=== PATIENT | female | born 1990 | race Caucasian/White ===

== ENCOUNTER → 2017-08-27 | Outpatient (CLI) | payer OTHER | END | disposition home or self-care (01) | LOC: C.LABSPEC 15:59 | PROVIDERS: ATTEND Obstetrics & Gynecology | DX: O09.211 Supervision of pregnancy with history of pre-term labor, first trimester (principal); Z3A.00 Weeks of gestation of pregnancy not specified ==

== ENCOUNTER → 2017-08-27 | Outpatient (CLI) | payer OTHER | END | disposition home or self-care (01) | LOC: C.PAPS 09:41 | PROVIDERS: ATTEND Obstetrics & Gynecology | DX: O09.211 Supervision of pregnancy with history of pre-term labor, first trimester (principal); Z3A.00 Weeks of gestation of pregnancy not specified ==

== ENCOUNTER → 2017-08-27 | Outpatient (CLI) | payer OTHER | END | disposition home or self-care (01) | LOC: C.LABSPEC 15:49 | PROVIDERS: ATTEND Obstetrics & Gynecology | DX: O09.211 Supervision of pregnancy with history of pre-term labor, first trimester (principal); Z3A.00 Weeks of gestation of pregnancy not specified ==

== ENCOUNTER → 2017-08-27 | Outpatient (CLI) | payer OTHER ==
[2017-08-27 14:39] LABS: BASO % 0.4 %; BASO ABS # 0.05 K/uL (0-0.2); EOS % 0.8 %; HEMATOCRIT 37.3 % (37-47); HEMOGLOBIN 12.7 g/dL (12.0-16.0); IG# 0.06 K/uL (0.00-0.02); LYMPH % 17.5 %; LYMPH ABS # 2.07 K/uL (1.2-3.4); MEAN CELL VOLUME 88.4 fL (80-100); MEAN CORPUSCULAR HEMOGLOBIN 30.1 pg (25-34); MEAN PLATELET VOLUME 9.5 fL (7.4-10.4); MONO % 9.1 %; MONO ABS # 1.08 K/uL (0.11-0.59); NEUT % 71.7 %; NEUT ABS # 8.47 K/uL (1.4-6.5); PLATELET COUNT 371 K/uL (130-400); RED CELL DISTRIBUTION WIDTH CV 12.9 % (11.5-14.5); RED CELL DISTRIBUTION WIDTH SD 41.7 fL (36.4-46.3); WHITE BLOOD COUNT 11.83 K/uL (4.8-10.8)
== END | disposition home or self-care (01) ==
LOC: C.LAB1850 13:15
PROVIDERS: ATTEND Obstetrics & Gynecology
DX: O09.211 Supervision of pregnancy with history of pre-term labor, first trimester (principal); Z3A.00 Weeks of gestation of pregnancy not specified

== ENCOUNTER → 2017-10-15 | Outpatient (CLI) | payer OTHER | LOC: C.LAB1850 15:11 | PROVIDERS: ATTEND Obstetrics & Gynecology | DX: O09.212 Supervision of pregnancy with history of pre-term labor, second trimester (principal); Z3A.00 Weeks of gestation of pregnancy not specified ==

== ENCOUNTER → 2017-10-29 | Outpatient (CLI) | payer OTHER | END | disposition home or self-care (01) | LOC: C.LAB1850 07:48 | PROVIDERS: ATTEND Obstetrics & Gynecology | DX: O28.1 Abnormal biochemical finding on antenatal screening of mother (principal) ==

== ENCOUNTER 2025-01-30 06:11 | Observation (INO) ==
--- NOTE | 2025-01-30 06:41 | Emergency Department Note ---
Impression & Plan Acute cholecystitis, Acute upper abdominal pain ED Provider Note NAME: HUMBERTO ALONZO AGE: 34 SEX: F : 1990 ARRIVES VIA: Walk-In INFORMANT: Patient, ED PROVIDER(S): Aleksander Hartley DO CHIEF COMPLAINT: Abdominal pain HPI: The patient is a 34-year-old female who presented to the emergency department for upper abdominal pain. The patient's had symptoms over the last several months. Initially symptoms were intermittent. She did go see her family doctor for the symptoms. She has been referred for an ultrasound. The patient returns emergency department today because of worsening symptoms this morning. She denies having any vomiting. She denies having any difficulty breathing. She denies having any leg swelling or leg pain. ROS: See above HPI for pertinent positives & negatives. A total of 10 systems reviewed and were otherwise negative. PAST MEDICAL HISTORY: See Below PAST SURGICAL HISTORY: See Below FAMILY HISTORY: See Below SOCIAL HISTORY: See Below HOME MEDICATIONS: See Below ALLERGIES: See Below VITALS: See Below PHYSICAL EXAMINATION: GENERAL: Patient is awake alert in no acute distress patient is resting comfortably and showing no signs of anxiety EYES: The conjunctivae are clear. The pupils are round and reactive. EARS, NOSE, MOUTH AND THROAT: The nose is without any evidence of any deformity. Mucous membranes are moist. Tongue is midline. NECK: The neck is nontender and supple. RESPIRATORY: Normal respiratory effort is noted there is no evidence of wheezing rhonchi or rales CARDIOVASCULAR: Regular rate and rhythm noted there no murmurs rubs or gallops normal S1 normal S2. GASTROINTESTINAL: The abdomen is soft and nondistended. There is no specific guarding there was right upper quadrant tenderness to palpation. MUSCULOSKELETAL/EXTREMITIES: There is no evidence of gross deformity full range of motion is noted in the hips and shoulders. SKIN: There is no obvious evidence of any rash. There are no petechiae, pallor or cyanosis noted. NEUROLOGIC: Patient is awake alert and oriented x3 MEDICAL DECISION MAKING: The patient is a 34-year-old female who presented to the emergency department for an evaluation of upper abdominal pain. Patient's history and physical exam did appear to be more consistent with an intra-abdominal process. I discussed the patient's laboratory and radiographic studies with her. She was treated with pain medication in the emergency department. She was also started on IV of antibiotics when workup appears to be consistent with acute cholecystitis. I discussed her condition with the on-call general surgical group. They have agreed to evaluate the patient in the emergency department. They felt she was a good candidate for surgical intervention. The patient was agreeable with that plan. Triage Nursing notes reviewed. Prior medical records reviewed Vital Signs: reviewed and remarkable for bradycardia. Differential diagnosis: Etiologies such as appendicitis, diverticulitis, obstruction, inflammatory bowel disease, renal colic, PUD, biliary pathology, pancreatitis, mesenteric ischemia, aortic pathology, infections, genitourinary, UTI, perforated viscus, as well as others were entertained. ER treatment provided: See below Diagnostics interpreted by me: ECG: EKG was obtained in the emergency department. My interpretation is normal sinus rhythm at 74 bpm. There is no ectopy. There is no acute ST segment abnormalities noted. QTc was 415 ms. Cardiac Monitoring: An order was placed for continuous cardiac monitoring. The monitor shows a rate of 60 bpm with sinus bradycardia. Laboratory studies: As stated above and show below. Imaging studies: See below. Radiographic imaging was reviewed by myself Consultation(s): I discussed this case with Maggie who is on for general surgery. They will evaluate the patient in the emergency department. Past Med/Surg History Problem List (Updated 01/30/25 @ 14:58 by Aleksander Hartley DO) Acute upper abdominal pain (Acute) Acute cholecystitis (Acute) Acute cholecystitis Encounter for pre-operative examination Pelvic pain Visual disturbance Ataxia Neck pain Paresthesias Elevated blood pressure reading in office without diagnosis of hypertension Left temporal headache Numbness and tingling of upper extremity Numbness and tingling of both legs Weakness Numbness and tingling of left side of face Vision changes H/O section Encounter to establish care Obesity Depression Anxiety 22 weeks gestation of Incompetent cervix during second trimester, antepartum with 22 completed weeks gestation Vaginal bleeding during , antepartum Medical History delivery delivered Family History Father Hypertension Grandfather (Paternal) Pancreatic cancer Stroke Denies family history of Ovarian cancer Prostate cancer Diabetes Alzheimer disease Myocardial infarction Breast cancer Lung cancer COPD (chronic obstructive pulmonary disease) Colorectal cancer Social History Smoking Status: Current every day smoker Tobacco Type: Cigarettes Age Started Using Tobacco: 19; packs per day: 1; Second Hand Exposure: No; Do You Dip or Chew Tobacco: No; Hx Alcohol Use: Yes Alcohol type: hard liquor Alcohol Intake Frequency: 2-4 x/Month Hx Substance Use: No Preferred Language: Belgian Communication Ability: Effective Compliance Lead Required: No Beliefs That Will Affect Care: None marital status: / Current Living Situation: Alone current occupational status: employed How many Children do You have: 2 Other Information That Helps Us Care for You: No Feels Safe at Home: Yes Safety Concerns: Feels Safe At This Time Childhood Exposure to Second-Hand Smoke: No Diet: regular caffeine: Yes during the past year weight has: decreased > 10 lbs Dental Care, Regularly: Yes Physical Activity Frequency: 3-4 Times per Week Seatbelt Use: always Sunscreen Use: Yes Do you think of yourself as: straight/heterosexual Gender Identity: Female Assistive Devices: None Allergies Allergies Allergy/AdvReac Type Severity Reaction Status Date / Time No Known Allergies Allergy Unverified 01/17/25 14:23 Home Meds Home Medications Medication Instructions Recorded Confirmed lisinopril 10 mg tablet 0 mg PO DAILY 01/30/25 01/30/25 multivitamin 1 tab PO DAILY 01/30/25 01/30/25 Previous Rx's Medication Instructions Recorded oxycodone 5 mg tablet 5 - 10 mg (1 - 2 x 5 mg) PO 01/30/25 .[id number] PRN pain, for initial therapy, max 6 tabs per day #15 tabs Results & Data (ED) Vital Signs Vital Signs - 24 hr 01/30/25 06:15 01/30/25 06:26 01/30/25 06:29 Temperature 36.5 C Temperature Source Temporal Artery Scan Pulse Rate 84 74 74 Pulse Rate [Apical] Pulse Rhythm Regular Regular Pulse Rhythm [Apical] Pulse Strength Normal Pulse Strength [Apical] Respiratory Rate 18 16 Respiratory Effort / Characteristics Non-Labored Spontaneous Respiratory Depth Normal Respiratory Pattern Regular Blood Pressure 165/109 H Blood Pressure [Right Arm] Blood Pressure Mean 127 Blood Pressure Mean [Right Arm] Blood Pressure Position Sitting Blood Pressure Position [Right Arm] Pulse Oximetry 100 98 Oxygen Delivery Method Room Air Room Air Sepsis Recent Fever Within 48 Hours No Sepsis New/Unexplained Change in Mental Status No Sepsis Action Taken by Nursing No Action Required 01/30/25 06:33 01/30/25 08:07 01/30/25 09:00 Temperature Temperature Source Pulse Rate 77 Pulse Rate [Apical] 53 L 48 L Pulse Rhythm Pulse Rhythm [Apical] Regular Pulse Strength Pulse Strength [Apical] Respiratory Rate 22 20 24 Respiratory Effort / Characteristics Non-Labored Non-Labored Spontaneous Respiratory Depth Normal Shallow Respiratory Pattern Regular Blood Pressure 141/106 H Blood Pressure [Right Arm] 142/92 H 135/72 Blood Pressure Mean 117 Blood Pressure Mean [Right Arm] 108 93 Blood Pressure Position Blood Pressure Position [Right Arm] Pulse Oximetry 98 99 97 Oxygen Delivery Method Room Air Room Air Room Air Sepsis Recent Fever Within 48 Hours Sepsis New/Unexplained Change in Mental Status Sepsis Action Taken by Nursing 01/30/25 09:36 01/30/25 09:41 01/30/25 09:52 Temperature 36.6 C Temperature Source Oral Pulse Rate Pulse Rate [Apical] 50 L 57 L Pulse Rhythm Pulse Rhythm [Apical] Regular Pulse Strength Pulse Strength [Apical] Normal Respiratory Rate 20 18 Respiratory Effort / Characteristics Non-Labored Spontaneous Non-Labored Spontaneous Respiratory Depth Normal Normal Respiratory Pattern Regular Blood Pressure Blood Pressure [Right Arm] 145/105 H 152/104 H Blood Pressure Mean Blood Pressure Mean [Right Arm] 118 120 Blood Pressure Position Blood Pressure Position [Right Arm] Sitting Pulse Oximetry 98 98 Oxygen Delivery Method Room Air Room Air Room Air Sepsis Recent Fever Within 48 Hours Sepsis New/Unexplained Change in Mental Status Sepsis Action Taken by Care Home Medications Current Medication List: was personally reviewed by me Laboratory Data Attestation: I reviewed the patient's lab results. 01/30/25 07:02 01/30/25 06:30 Lab Results 01/30/25 01/30/25 Range/Units 06:30 07:02 WBC 10.73 (4.8-10.8) K/ul RBC 4.37 (4.20-5.40) M/uL Hgb 13.7 (12.0-16.0) g/dl Hct 39.4 (37.0-47.0) % MCV 90.2 (80.0-100.0) fL MCH 31.4 (25.0-34.0) pg MCHC 34.8 (32.0-36.0) g/dL RDW Std Deviation 41.4 (36.4-46.3) fL RDW Coeff of Petros 12.5 (11.5-14.5) % Plt Count 331 (130-400) K/uL MPV 9.5 (9.4-12.4) fL Immature Gran % (Auto) 0.6 % Neut % (Auto) 71.4 % Lymph % (Auto) 17.1 % Cross % (Auto) 8.9 % Eos % (Auto) 1.0 % Baso % (Auto) 1.0 % Neut # (Auto) 7.66 H (1.40-6.50) K/uL Lymph # (Auto) 1.84 (1.20-3.40) K/uL Cross # (Auto) 0.95 H (0.11-0.59) K/uL Eos # (Auto) 0.11 (0.00-0.50) K/uL Baso # (Auto) 0.11 (0.00-0.20) K/uL Immature Gran # (Auto) 0.06 (0.01-0.20) K/uL PT 10.6 (9.0-12.0) Seconds INR 1.0 (0.9-1.1) APTT 26 (21-31) Seconds PTT Ratio 1.0 Sodium 137 (136-145) mmol/L Potassium 3.9 (3.5-5.1) mmol/L Chloride 105 (98-107) mmol/L Carbon Dioxide 27 (21-32) mmol/L Anion Gap 5 (3-11) BUN 15 (6-23) mg/dl Creatinine 0.62 (0.6-1.2) mg/dl Est Cr Clr Drug Dosing 146.7 ml/min eGFR 121.27 BUN/Creatinine Ratio 24.2 H (10-20) Glucose 99 (70-99(Fasting)) mg/dl Calcium 8.9 (8.6-10.3) mg/dl Total Bilirubin 0.5 (0.2-1.0) mg/dl AST 35 (13-39) U/L ALT 27 (7-52) U/L Alkaline Phosphatase 50 (34-104) U/L Troponin I High Sens 2.9 (0-14) pg/ml Total Protein 7.1 (6.0-8.3) gm/dl Albumin 4.1 (3.4-5.0) gm/dl Globulin 3.0 (2.5-4.0) gm/dl Albumin/Globulin Ratio 1.4 (0.9-2) Lipase 21 (11-82) U/L HCG, Qual Negative (Negative) Administered Medications Lactated Ringer's (Lr) 1,000 mls @ 80 mls/hr IV .[id number] Stop: 02/02/25 12:41 Last Admin: 01/30/25 12:56 Dose: 80 mls/hr Documented By: YORDY Oxycodone HCl (Oxycodone Hcl Ir 5 Mg Tab (Immediate Release)) 10 mg PO Q4H PRN PRN Reason: SEVERE Pain (7,8,9,10) Stop: 02/13/25 12:41 Last Admin: 01/30/25 13:30 Dose: 10 mg Documented By: YORDY Discontinued Medications Bupivacaine HCl/Epinephrine Bitart (Bupivacaine/Epinephrine 0.25% 1:200,000 30 Ml Vial) Confirm Administered Dose 30 ml .ROUTE .STK-MED ONE Stop: 01/30/25 10:17 Last Admin: 01/30/25 10:51 Dose: 30 ml Documented By: [id number] Fentanyl Citrate (Fentanyl Citrate Pf 100 Mcg/2 Ml Vial) 25 mcg IV Q5M PRN PRN Reason: PACU Use Only-Pain Stop: 01/30/25 17:35 Last Admin: 01/30/25 12:06 Dose: 25 mcg Documented By: Admin: 01/30/25 11:59 Dose: 25 mcg Documented By: Admin: 01/30/25 11:53 Dose: 25 mcg Documented By: Admin: 01/30/25 11:43 Dose: 25 mcg Documented By: LASHANDA Piperacillin Sod/Tazobactam Sod (Zosyn) 4.5 gm in 100 mls @ 200 mls/hr IV NOW ONE; Protocol Stop: 01/30/25 09:43 Last Infusion: 01/30/25 13:00 Dose: Infused Documented By: Admin: 01/30/25 09:35 Dose: 200 mls/hr Documented By: ES Ketorolac Tromethamine (Ketorolac Tromethamine 15 Mg/Ml Vial) 10 mg IV NOW ONE Stop: 01/30/25 08:19 Last Admin: 08/05/25 08:23 Dose: 10 mg Documented By: DEYVI Miscellaneous ( Floseal Hemostatic Matrix 10ml) 10 ml TOP ONCE ONE Stop: 01/30/25 11:04 Last Admin: 01/30/25 11:03 Dose: 10 ml Documented By: [id number] Ondansetron HCl (Ondansetron Inj 2 Mg/Ml 2 Ml Vial) 4 mg IV NOW STA Stop: 01/30/25 08:19 Last Admin: 01/30/25 08:24 Dose: 4 mg Documented By: DEYVI Imaging Data Attestation: I personally reviewed and interpreted this imaging study as follows: My Impression: 1 view chest x-ray was obtained in the emergency department. My interpretation is poor inspiratory effort, no free air, final report below. Radiologist's Impression: Chest X-Ray 01/30/25 06:19 EXAM: XR chest 1V portable CLINICAL HISTORY: Chest pain, nonspecific TECHNIQUE: Radiograph of chest was acquired. COMPARISON: none FINDINGS: Prominent peripheral and perihilar bronchovascular markings in bilateral lung silverman. Rest of the lungs are clear and well-expanded with no pulmonary infiltrate or pleural effusion. The cardiomediastinal silhouette is within normal limits. No acute osseous abnormality. IMPRESSION: 1Prominent peripheral and perihilar bronchovascular markings in bilateral lung silverman are likely of congestive etiology, clinical correlation is recommended. Electronically signed by Mainor Cole 01-30-2025 07:40 AM Gallbladder Ultrasound 01/30/25 06:31 ULTRASOUND RIGHT UPPER QUADRANT ABDOMEN CLINICAL HISTORY: Right upper quadrant abdominal pain. COMPARISON STUDY: No priors TECHNIQUE: Real-time, grayscale, and color flow sonography of the right upper quadrant of the abdomen was performed. Images are reviewed in the transverse and longitudinal planes. FINDINGS: Liver: The liver is normal in size and echotexture. There is no intrahepatic biliary ductal dilatation. The main portal vein is patent. Gallbladder: The gallbladder is distended and contains shadowing gallstones as well as biliary sludge. The gallbladder wall appears mildly thickened and edematous measuring up to 4 mm. No pericholecystic fluid is seen. A sonographic Simons's sign is reportedly present. The common bile duct measures up to 0.5 cm in diameter. Pancreas: Not visualized due to overlying bowel gas. Right kidney: Survey images of the right kidney demonstrate normal size and echotexture. There is no hydronephrosis. Ascites: None. IMPRESSION: 1. Cholelithiasis with evidence of acute cholecystitis. Surgical evaluation is advised. 2. There is no intra or extrahepatic biliary ductal dilatation. 3. Nonvisualization of the pancreas. ACT 112: Negative or not required by law. Electronically signed by: Lenny Gabriel M.D. 01/30/2025 8:37 AM Discharge Plan Visit Data Chief Complaint: Rib Injury/Pain Stated Complaint: RIB/BACK PAIN ED Provider: Aleksander Hartley Discharge Problem: Acute cholecystitis, Acute upper abdominal pain Patient Disposition: Admitted As Inpatient Condition: Fair Discharge Instructions Interventions: ED Discharge Assessment Last Done: 01/30/25 09:41
[2025-01-30 07:22] LABS: INR 1.0 (0.9-1.1); Partial Thromboplastin Time 26 Seconds (21-31); Prothrombin Time 10.6 Seconds (9.0-12.0)
[2025-01-30 07:31] LABS: Hematocrit (blood only) 39.4 % (37.0-47.0); Hemoglobin 13.7 g/dl (12.0-16.0); Immature Granulocytes # (auto) 0.06 K/uL (0.01-0.20); Immature Granulocytes % (auto) 0.6 %; Mean Corpuscular Hemoglobin 31.4 pg (25.0-34.0); Mean Corpuscular Volume 90.2 fL (80.0-100.0); Platelet Count 331 K/uL (130-400); RDW Standard Deviation 41.4 fL (36.4-46.3); Red Blood Count 4.37 M/uL (4.20-5.40); White Blood Count 10.73 K/ul (4.8-10.8)
[2025-01-30 07:34] LABS: Pregnancy Test, Serum Negative (Negative)
--- NOTE | 2025-01-30 07:40 | XRay Report ---
EXAM: XR chest 1V portable CLINICAL HISTORY: Chest pain, nonspecific TECHNIQUE: Radiograph of chest was acquired. COMPARISON: none FINDINGS: Prominent peripheral and perihilar bronchovascular markings in bilateral lung silverman. Rest of the lungs are clear and well-expanded with no pulmonary infiltrate or pleural effusion. The cardiomediastinal silhouette is within normal limits. No acute osseous abnormality. IMPRESSION: 1Prominent peripheral and perihilar bronchovascular markings in bilateral lung silverman are likely of congestive etiology, clinical correlation is recommended. Electronically signed by Mainor Cole 01-30-2025 07:40 AM
[2025-01-30 07:42] LABS: Potassium 3.9 mmol/L (3.5-5.1)
[2025-01-30 07:50] LABS: Alanine Aminotransferase 27.0 U/L (7-52); Albumin Globulin Ratio 1.4 (0.9-2); Alkaline Phosphatase 50.0 U/L (34-104); Anion Gap 5.0 (3-11); Bilirubin,Total 0.5 mg/dl (0.2-1.0); Blood Urea Nitrogen 15.0 mg/dl (6-23); Calcium 8.9 mg/dl (8.6-10.3); Carbon Dioxide 27.0 mmol/L (21-32); Chloride 105.0 mmol/L (98-107); Creatinine Clr Calc Pharmacy 146.7 ml/min; Globulin 3.0 gm/dl (2.5-4.0); Glucose 99.0 mg/dl (70-99(Fasting)); Lipase 21.0 U/L (11-82); Sodium 137.0 mmol/L (136-145); Total Protein 7.1 gm/dl (6.0-8.3)
[2025-01-30] MEDS: KETOROLAC TROMETHAMINE 15 MG/ML VIAL IV ONE (08:23)
[2025-01-30] MEDS: ONDANSETRON INJ 2 MG/ML 2 ML VIAL IV STA (08:24)
--- NOTE | 2025-01-30 08:35 | Electrocardiogram Report ---
Test Reason : Blood Pressure : */* mmHG Vent. Rate : 74 BPM Atrial Rate : 74 BPM P-R Int : 158 ms QRS Dur : 90 ms QT Int : 374 ms P-R-T Axes : 10 12 37 degrees QTcB Int : 415 ms Normal sinus rhythm No previous ECGs available Confirmed by Zeke Marina ([id number]) on 01/30/2025 8:34:55 AM Referred By: Confirmed By: Zeke Marina
--- NOTE | 2025-01-30 08:39 | Ultrasound Report ---
ULTRASOUND RIGHT UPPER QUADRANT ABDOMEN CLINICAL HISTORY: Right upper quadrant abdominal pain. COMPARISON STUDY: No priors TECHNIQUE: Real-time, grayscale, and color flow sonography of the right upper quadrant of the abdomen was performed. Images are reviewed in the transverse and longitudinal planes. FINDINGS: Liver: The liver is normal in size and echotexture. There is no intrahepatic biliary ductal dilatatio n. The main portal vein is patent. Gallbladder: The gallbladder is distended and contains shadowing gallstones as well as biliary sludge . The gallbladder wall appears mildly thickened and edematous measuring up to 4 mm. No pericholecysti c fluid is seen. A sonographic Simons's sign is reportedly present. The common bile duct measures up to 0.5 cm in diameter. Pancreas: Not visualized due to overlying bowel gas. Right kidney: Survey images of the right kidney demonstrate normal size and echotexture. There is no hydronephrosis. Ascites: None. IMPRESSION: 1. Cholelithiasis with evidence of acute cholecystitis. Surgical evaluation is advised. 2. There is no intra or extrahepatic biliary ductal dilatation. 3. Nonvisualization of the pancreas. ACT 112: Negative or not required by law. Electronically signed by: Lenny Gabriel M.D. 01/30/2025 8:37 AM
--- NOTE | 2025-01-30 09:34 | Surgery Consultation ---
Date of Consultation January 30, 2025 Assessment & Plan (1) Acute cholecystitis: Her ultrasound images and results were personally viewed and interpreted by myself She does have gallstones and edematous gallbladder consistent with acute cholecystitis Will plan on a laparoscopic cholecystectomy, possible open, possible intraoperative cholangiogram Consent was obtained, risk discussed including bleeding, infection, bile leak, ductal injury History of Present Illness Reason for Consultation: Acute cholecystitis History of Present Illness This is a 34-year-old female presenting to the ER this morning with sharp right upper quadrant abdominal pain and epigastric pain that radiates to her back. She states this has happened several times over the last few months but this was more severe. She denies any fevers or chills or nausea or vomiting. She denies any scleral icterus, acholic stools, tea colored urine. Only abdominal surgery was a . Allergies Allergy/AdvReac Type Severity Reaction Status Date / Time No Known Allergies Allergy Unverified 01/17/25 14:23 Home Medications Medication Instructions Recorded Confirmed Type lisinopril 10 mg tablet 0 mg PO DAILY 01/30/25 01/30/25 History multivitamin 1 tab PO DAILY 01/30/25 01/30/25 History Patient History Medical History delivery delivered Family History Father Hypertension Grandfather (Paternal) Pancreatic cancer Stroke Denies family history of Ovarian cancer Prostate cancer Diabetes Alzheimer disease Myocardial infarction Breast cancer Lung cancer COPD (chronic obstructive pulmonary disease) Colorectal cancer Social History Smoking Status: Current every day smoker Tobacco Type: Cigarettes Age Started Using Tobacco: 19; packs per day: 1; Second Hand Exposure: No; Do You Dip or Chew Tobacco: No; Hx Alcohol Use: Yes (social) Alcohol type: hard liquor Alcohol Intake Frequency: 2-4 x/Month Hx Substance Use: No Preferred Language: Anguill[place] Communication Ability: Effective Foam Molder Required: No Beliefs That Will Affect Care: None marital status: / Current Living Situation: Family current occupational status: employed How many Children do You have: 2 Feels Safe at Home: Yes Childhood Exposure to Second-Hand Smoke: No Diet: regular caffeine: Yes during the past year weight has: decreased > 10 lbs Dental Care, Regularly: Yes Physical Activity Frequency: 3-4 Times per Week Seatbelt Use: always Sunscreen Use: Yes Do you think of yourself as: straight/heterosexual Gender Identity: Female Assistive Devices: Contacts, Denture - Upper and Glasses Review of Systems Constitutional: no fever and no chills Eyes: no blind spots and no corrective lenses Ear, Nose, Mouth, Throat: no ear pain and no hearing loss Respiratory: no cough and no dyspnea Cardiovascular: no chest pain and no dyspnea on exertion Gastrointestinal: + abdominal pain; no nausea, no vomiting , no constipation and no diarrhea/loose stools Genitourinary: no dysuria and no urinary urgency Musculoskeletal: no back pain and no neck pain Integumentary: no acne, no sores and no erythema Neurologic: no gait abnormality and no memory loss Psychiatric: no behavioral changes and no depression Hematologic / Lymphatic: no easy bleeding and no easy bruising Physical Exam Constitutional: WD/WN, vitals as above Eyes: PERRL, conjunctivae normal, anicteric sclerae ENMT: external ear and nose normal, oropharynx normal Neck: trachea midline, no thyromegaly Respiratory: normal respiratory effort, lungs clear to auscultation Cardiovascular: RRR, no murmur, no edema Gastrointestinal (Abdomen): Inspection/Auscultation: abdomen normal to inspection; abdomen not distended Percussion/Palpation: + abdomen tender (Right upper quadrant) and abdomen soft; no guarding and no hernia Positive Simons's Musculoskeletal: no cyanosis or clubbing, extremities motor strength 5/5 Skin: no rashes, warm and dry Neurologic: PERRL, EOMI, accommodation nl, no face palsy, no dysarthria Psychiatric: A+Ox3, euthymic affect Results & Data Vital Signs (Past 12 Hours) Vital Signs Temp Pulse Pulse Resp BP BP Pulse Ox 01/30/25 09:00 48 L 24 135/72 97 01/30/25 08:07 53 L 20 142/92 H 99 01/30/25 06:33 77 22 141/106 H 98 01/30/25 06:29 74 01/30/25 06:26 74 16 98 01/30/25 06:15 36.5 C 84 18 165/109 H 100 O2 Del Method 01/30/25 09:00 Room Air 01/30/25 08:07 Room Air 01/30/25 06:33 Room Air 01/30/25 06:29 01/30/25 06:26 Room Air 01/30/25 06:15 Room Air Diagnostic Findings ULTRASOUND RIGHT UPPER QUADRANT ABDOMEN CLINICAL HISTORY: Right upper quadrant abdominal pain. COMPARISON STUDY: No priors TECHNIQUE: Real-time, grayscale, and color flow sonography of the right upper quadrant of the abdomen was performed. Images are reviewed in the transverse and longitudinal planes. FINDINGS: Liver: The liver is normal in size and echotexture. There is no intrahepatic biliary ductal dilatation. The main portal vein is patent. Gallbladder: The gallbladder is distended and contains shadowing gallstones as well as biliary sludge. The gallbladder wall appears mildly thickened and edematous measuring up to 4 mm. No pericholecystic fluid is seen. A sonographic Simons's sign is reportedly present. The common bile duct measures up to 0.5 cm in diameter. Pancreas: Not visualized due to overlying bowel gas. Right kidney: Survey images of the right kidney demonstrate normal size and echotexture. There is no hydronephrosis. Ascites: None. IMPRESSION: 1. Cholelithiasis with evidence of acute cholecystitis. Surgical evaluation is advised. 2. There is no intra or extrahepatic biliary ductal dilatation. 3. Nonvisualization of the pancreas. PG Care Time/CCT Total # of Minutes Spent Total Time Spent with Patient: Total time spent is greater than 50% in coordination of care (as documented) at patient's floor/unit and/or counseling patient: Coding Level of Care Code 44251 IN/OBS CONSULT LVL 5,80M Diagnoses Acute cholecystitis K81.0
--- NOTE | 2025-01-30 09:34 | Anesthesiology Consultation ---
Date of Service January 30, 2025 Assessment & Plan (1) Encounter for pre-operative examination: Chart Review Chart Review: Acceptable Risk for Surgery and Patient NOT seen in Pre Admission Testing Consults Requested none History Surgery Operation Date: 01/30/25 09:25 Proposed Procedures p Laparoscopic Cholecystectomy - Klever Funez DO Height/Weight Height: 5 ft 6 in Weight: 89.4 kg Allergies Allergy/AdvReac Type Severity Reaction Status Date / Time No Known Allergies Allergy Unverified 01/17/25 14:23 Medications Home Medications Medication Instructions Recorded Confirmed Last Taken lisinopril 10 mg tablet 0 mg PO DAILY 01/30/25 01/30/25 Unknown multivitamin 1 tab PO DAILY 01/30/25 01/30/25 Unknown Past Medical History Medical History delivery delivered Past Family History Family History Father Hypertension Grandfather (Paternal) Pancreatic cancer Stroke Denies family history of Ovarian cancer Prostate cancer Diabetes Alzheimer disease Myocardial infarction Breast cancer Lung cancer COPD (chronic obstructive pulmonary disease) Colorectal cancer Social History Smoking Status: Current every day smoker Do You Dip or Chew Tobacco: No Hx Alcohol Use: Yes (social) Alcohol type: hard liquor Hx Substance Use: No Physical Exam Vital Signs Last Vital Signs Temp 97.7 F 01/30/25 06:15 Pulse 48 L 01/30/25 09:00 Resp 24 01/30/25 09:00 BP 135/72 01/30/25 09:00 Pulse Ox 97 01/30/25 09:00 O2 Del Method Room Air 01/30/25 09:00 Testing Laboratory Results 01/30/25 07:02 01/30/25 06:30 PT 10.6 Seconds (9.0-12.0) 01/30/25 06:30 INR 1.0 (0.9-1.1) 01/30/25 06:30 APTT 26 Seconds (21-31) 01/30/25 06:30 Electrocardiogram Date: 01/30/25 Findings: + NSR @
[2025-01-30] MEDS ORDERED: ONDANSETRON INJ 2 MG/ML 2 ML VIAL IV PRN ×2 (09:35→12:42)
[2025-01-30] MEDS ORDERED: ATROPINE SULFATE 0.1 MG/ML 10ML SYR IV PRN (09:35)
[2025-01-30] MEDS: PIPERACILLIN/TAZOBACTAM 4.5 GM/100 ML BAG IV ONE (09:35)
[2025-01-30] MEDS ORDERED: ONDANSETRON INJ 2 MG/ML 2 ML VIAL ONE (09:38)
[2025-01-30] MEDS ORDERED: DEXAMETHASONE SOD INJ 4 MG/ML VIAL ONE (09:38)
[2025-01-30] MEDS ORDERED: MIDAZOLAM HCL 1 MG/ML 2ML VIAL ONE (09:38)
[2025-01-30] MEDS ORDERED: PROPOFOL IV EMULSION 10 MG/ML 20 ML VIAL IV ONE (09:38)
[2025-01-30] MEDS ORDERED: ROCURONIUM BROMIDE 10 MG/ML 5 ML VIAL IV ONE (09:38)
[2025-01-30] MEDS ORDERED: SUGAMMADEX SODIUM 200 MG/2 ML VIAL IV ONE ×2 (09:39→10:43)
[2025-01-30] MEDS: BUPIVACAINE/EPINEPHRINE 0.25% 1:200,000 30 ML VIAL ONE (10:51)
[2025-01-30] MEDS: FLOSEAL HEMOSTATIC MATRIX 10ML TOP ONE (11:03)
--- NOTE | 2025-01-30 11:24 | Post Operative Brief Note ---
PG Immediate Post Op with CF Date of Surgery January 30, 2025 Pre & Post Diagnosis Operation Date: 01/30/25 09:25 Pre-Op Diagnosis: Acute Cholecystitis Post-Op Diagnosis: Acute Cholecystitis I identified the patient and participated in the time-out.: Yes Procedure Operation Date: 01/30/25 09:25 Actual Procedures p Laparoscopic Cholecystectomy(Not Applicable) - Klever Funez DO Surgeon Klever Funez DO Doughnut Maker Maggie Rowley PA-C Estimated Blood Loss 25 Findings See Below Acutely inflamed and edematous gallbladder consistent with acute cholecystitis Gallbladder hydrops Specimens Specimen Description: A: Gallbladder and Contents Anesthesia Type General Complications none Disposition Disposition: Recovery Room
--- NOTE | 2025-01-30 11:25 | Operative Report ---
PG Post Operative Report Pre & Post Diagnosis Operation Date: 01/30/25 09:25 Pre-Op Diagnosis: Acute Cholecystitis Post-Op Diagnosis: Acute Cholecystitis I identified the patient and participated in the time-out.: Yes Procedure Operation Date: 01/30/25 09:25 Actual Procedures p Laparoscopic Cholecystectomy(Not Applicable) - Klever Funez DO Surgeon Klever Funez DO [employer] Department Supervisor Maggie Rowley PA-C Estimated Blood Loss 25 Findings See Below Acutely inflamed edematous gallbladder consistent with acute cholecystitis Gallbladder hydrops Fluids see anesthesia record Specimens Gallbladder to pathology Drains None Anesthesia Type General Complications none Disposition Disposition: Recovery Room Indications 34-year-old female with acute cholecystitis Description of Procedure The patient was brought to the operating room and placed in the supine position with both arms extended. At this time she underwent general endotracheal anesthesia without any problems. She was given appropriate pre-operative antibiotics. Her abdomen prepped and draped in the usual sterile fashion. A timeout was called, the procedure was verified as Laparoscopic cholecystectomy, possible open, possible intra-operative cholangiogram. Surgical, nursing and anesthesia teams agreed and the procedure was begun. After injection of 0.25% Marcaine with epinephrine, a supraumbilical vertical incision was made and carried down to the fascia using S-retractors. The abdominal wall was then elevated with towel clamps and abdomen entered using the Veress needle confirming position using the saline drop test. Pneumoperitoneum was established. 5mm trocar was placed. Laparoscope was introduced. No injury from entry into the abdomen was visualized after inspection of the abdomen. Three further ports were placed under direct visualization. One 11mm in the subxiphoid region and two 5mm in the RUQ. At this time the abdomen was inspected and the gallbladder identified. The gallbladder fundus was grasped and retracted cephalad. The gallbladder itself was acutely inflamed and dilated as well as edematous consistent with acute cholecystitis. The gallbladder was needle decompressed in order to manipulate it more easily. This revealed gallbladder hydrops. The gallbladder infundibulum was then grasped and retracted laterally. The cystic duct and cystic artery were then identified and skeletonized. The critical view of safety was obtained. They were both then clipped twice proximally and once distally and then divided using scissors. The gallbladder was then taken off of the liver bed using electrocautery and placed in an endocatch bag and removed from the subxiphoid port. The liver bed was then inspected and no bile leak or bleeding was evident. 10 mL of Floseal hemostatic agent was placed in the gallbladder fossa. The subxiphoid port was then closed using 0-Vicryl using the suture passer. The trocars were then removed under direct visualization and no bleeding was present. Abdomen was desufflated. The skin was then closed using 4-0 Monocryl in a subcuticular fashion. Surgical glue was applied. Needle and sponge counts were correct x 2. At this time the patient was awoken from anesthesia and extubated having remained stable throughout the entire case. The patient was then transported to PACU in stable condition. The physician podiatric assistant was present scrubbed for the entire case. She was essential in positioning, prepping and draping the patient, retraction and exposure, driving the laparoscope, closure of the incisions and placement of the dressings. I attest to the content of the Intraoperative Record and any orders documented therein. Any exceptions are noted below.
--- NOTE | 2025-01-30 12:34 | Anesthesiology Progress Note ---
Date of Service January 30, 2025 Anesthesia Post Procedure Vital Signs Vital Signs: Temp Pulse Pulse Resp BP BP Pulse Ox 01/30/25 12:20 36.6 C 53 L 22 129/84 93 01/30/25 12:10 55 L 24 135/85 93 01/30/25 12:00 61 17 135/79 98 01/30/25 11:55 62 18 126/82 97 01/30/25 11:45 78 22 153/94 H 97 01/30/25 11:39 36 C L 88 21 161/86 H 96 01/30/25 09:52 36.6 C 57 L 18 152/104 H 98 01/30/25 09:41 01/30/25 09:36 50 L 20 145/105 H 98 01/30/25 09:00 48 L 24 135/72 97 01/30/25 08:07 53 L 20 142/92 H 99 01/30/25 06:33 77 22 141/106 H 98 01/30/25 06:29 74 01/30/25 06:26 74 16 98 01/30/25 06:15 36.5 C 84 18 165/109 H 100 O2 Del Method O2 Flow Rate 01/30/25 12:20 Room Air 0 01/30/25 12:10 Room Air 0 01/30/25 12:00 Oxymask 2 01/30/25 11:55 Oxymask 2 01/30/25 11:45 Oxymask 10 01/30/25 11:39 Oxymask 10 01/30/25 09:52 Room Air 01/30/25 09:41 Room Air 01/30/25 09:36 Room Air 01/30/25 09:00 Room Air 01/30/25 08:07 Room Air 01/30/25 06:33 Room Air 01/30/25 06:29 01/30/25 06:26 Room Air 01/30/25 06:15 Room Air Pain Intensity Bilateral Ribs: Pain Intensity: 6 Abdomen: Pain Intensity: 4 Transfer of Care Handoff Completed per policy Notes Mental Status: alert / awake / arousable Patient Amnestic to Procedure: Yes Nausea / Vomiting: adequately controlled Pain: adequately controlled Airway Patency, RR, SpO2: stable & adequate BP & HR: stable & adequate Hydration State: stable & adequate Anesthetic Complications: no major complications apparent
[2025-01-30] MEDS ORDERED: MoRPHine SULFATE 2 MG/ML CARP IV PRN (12:42)
[2025-01-30] MEDS: LACTATED RINGER'S 1,000 ML IV SCH (12:56)
[2025-01-30] MEDS: PIPERACILLIN/TAZOBACTAM 4.5 GM/100 ML BAG IV SCH (15:02)
[2025-01-30] MEDS: MoRPHine SULFATE 4 MG/ML 1 ML CARP\\VIAL IV PRN (16:23)
[2025-01-30 19:02] VITALS: RESP 16
[2025-01-31 07:29] LABS: Hematocrit (blood only) 40.9 % (37.0-47.0); Hemoglobin 13.7 g/dl (12.0-16.0); Immature Granulocytes # (auto) 0.12 K/uL (0.01-0.20); Immature Granulocytes % (auto) 0.6 %; Mean Corpuscular Hemoglobin 30.6 pg (25.0-34.0); Mean Corpuscular Volume 91.3 fL (80.0-100.0); Platelet Count 301 K/uL (130-400); RDW Standard Deviation 42.0 fL (36.4-46.3); Red Blood Count 4.48 M/uL (4.20-5.40); White Blood Count 19.27 K/ul (4.8-10.8)
[2025-01-31 07:33] VITALS: PULSE 50
[2025-01-31 07:52] LABS: Alanine Aminotransferase 39.0 U/L (7-52); Albumin Globulin Ratio 1.3 (0.9-2); Alkaline Phosphatase 55.0 U/L (34-104); Anion Gap 6.0 (3-11); Bilirubin,Total 0.9 mg/dl (0.2-1.0); Blood Urea Nitrogen 8.0 mg/dl (6-23); Calcium 9.0 mg/dl (8.6-10.3); Carbon Dioxide 28.0 mmol/L (21-32); Chloride 104.0 mmol/L (98-107); Creatinine Clr Calc Pharmacy 146.7 ml/min; Globulin 3.0 gm/dl (2.5-4.0); Glucose 93.0 mg/dl (70-99(Fasting)); Potassium 4.2 mmol/L (3.5-5.1); Sodium 138.0 mmol/L (136-145); Total Protein 7.0 gm/dl (6.0-8.3)
[2025-01-31] MEDS: ACETAMINOPHEN 325 MG TAB PO PRN (08:15)
--- NOTE | 2025-01-31 08:46 | Surgery Progress Note ---
Date of Service January 31, 2025 Assessment & Plan (1) Hx laparoscopic cholecystectomy: Plan: She is doing well with expected postop pain and increase in white blood cell count Her hemoglobin has been stable She is okay for discharge later this afternoon and will follow-up with me in 2 weeks Admission and Anticipated Discharge Date Admission Date: January 30, 2025 Subjective Patient seen and examined. Has some incisional pain in her epigastric incision. Tolerating a diet without nausea and vomiting. She has been up to the bathroom without issue. Physical Exam Constitutional: WD/WN, vitals as above Gastrointestinal (Abdomen): Inspection/Auscultation: abdomen normal to inspection; abdomen not distended Percussion/Palpation: + abdomen tender (Appropriately) and abdomen soft Incisions healing well without erythema or drainage Musculoskeletal: no cyanosis or clubbing, extremities motor strength 5/5 Skin: no rashes, warm and dry Neurologic: PERRL, EOMI, accommodation nl, no face palsy, no dysarthria Psychiatric: A+Ox3, euthymic affect Results & Data Vital Signs (Past 12 Hours) Vital Signs Temp Pulse Resp BP BP Pulse Ox O2 Del Method 01/31/25 07:26 36.4 C L 50 L 16 114/78 96 Room Air 01/31/25 03:00 36.5 C 46 L 16 115/79 92 Room Air 01/30/25 23:14 36.3 C L 56 L 16 121/82 95 Room Air PG Care Time/CCT Total # of Minutes Spent Total Time Spent with Patient: Total time spent is greater than 50% in coordination of care (as documented) at patient's floor/unit and/or counseling patient: Coding Level of Care Code 21848 Post Operative Follow-Up Diagnoses Hx laparoscopic cholecystectomy Z90.49
[2025-01-31 11:43] VITALS: TEMP 97.9; O2SAT 93
[2025-01-31 12:34] VITALS: BP 115/79
[2025-01-31] MEDS: KETOROLAC TROMETHAMINE 15 MG/ML VIAL IV ONE (12:59)
== END 2025-01-31 14:48 | disposition home or self-care (01) ==
LOC: ED 06:11 → OR 09:39 → 3W 09:39 → OR 09:42